=== PATIENT | male | born 1930 | race Caucasian/White ===

== ENCOUNTER 2017-06-15 08:00 | Outpatient (CLI) | payer MEDICARE ==
[2017-06-16 12:30] LABS: ALBUMIN 4.1 g/dL (3.2-5.5); ALBUMIN/GLOBULIN RATIO 1.6 (1.0-2.2); ALKALINE PHOSPHATASE 64 IU/L (42-121); ALT ALANINE AMINOTRANSFERASE 19 IU/L (10-60); AST ASPARTATE AMINOTRANSFERASE 22 IU/L (10-42); BILIRUBIN,TOTAL 0.8 mg/dL (0.2-1.0); BUN - BLOOD UREA NITROGEN 17 mg/dL (6-20); CALCIUM 8.9 mg/dL (8.5-10.3); CARBON DIOXIDE - CO2 29 mmol/L (21-32); CHLORIDE 104 mmol/L (101-111); CHOLESTEROL 112 mg/dL; CREATININE 1.2 mg/dL (0.6-1.2); GFR - MDRD 57 (>89); GLUCOSE 112 mg/dL (70-100); HDL CHOLESTEROL 33 mg/dL; LDL CHOLESTEROL,CALCULATED 49 mg/dL; SODIUM 138 mmol/L (135-145); TOTAL PROTEIN 6.7 g/dL (6.7-8.2); VLDL CHOLESTEROL 30 mg/dL
[2017-06-16 12:31] LABS: CHOL/HDL RATIO 3.4 (<5.0); LDL/HDL RATIO 1.5 (<3.6)
== END 2017-06-15 08:01 ==
LOC: LAB.F 08:00
PROVIDERS: ATTEND Internal Medicine
DX: I10 Essential (primary) hypertension (principal); E78.5 Hyperlipidemia, unspecified; I48.2 Chronic atrial fibrillation
CPT/HCPCS: 36415; 80053; 80061; 83721; 84443

== ENCOUNTER 2017-11-28 15:37 | Emergency (ER) | payer MEDICARE, OTHER ==
[2017-11-28 16:18] LABS: BASOPHILS % (AUTO) 0.6 %; EOSINOPHILS # (AUTO) 0.1 10^3/uL (0.0-0.7); EOSINOPHILS % (AUTO) 1.9 %; HGB - HEMOGLOBIN 14.1 g/dL (14.0-18.0); LYMPHOCYTES # (AUTO) 1.6 10^3/uL (1.5-3.5); LYMPHOCYTES % (AUTO) 23.6 %; MEAN CORPUSCULAR HEMOGLOBIN 29.9 pg (27.0-31.0); MEAN CORPUSCULAR HGB CONC 33.4 g/dL (32.0-36.0); MEAN CORPUSCULAR VOLUME 89.4 fL (80.0-94.0); MEAN PLATELET VOLUME 8.4 fL (7.4-11.4); MONOCYTES # (AUTO) 0.4 10^3/uL (0.0-1.0); MONOCYTES % (AUTO) 6.3 %; NEUTROPHILS # (AUTO) 4.7 10^3/uL (1.5-6.6); NEUTROPHILS % (AUTO) 67.6 %; PLT - PLATELET COUNT 197 10^3/uL (130-450); RED BLOOD COUNT 4.71 10^6/uL (4.70-6.10); RED CELL DISTRIBUTION WIDTH 14.6 % (12.0-15.0)
--- NOTE | 2017-11-28 16:18 | ED Physician Documentation ---
PD HPI DYSPNEA - Stated complaint Stated Complaint: LOW PULSE - Chief complaint Chief Complaint: Cardiac - History obtained from History obtained from: Patient, Family - History of Present Illness Timing - onset: How many days ago (family has noted the patient having some general fatigue and mild dyspnea on exertion for several days. He had ankle edema yesterday. Took vitals at home and noted HR slow at about 40 and BP elevated at 200 systolic. Denies chest pain.) Timing - onset during: Light activity Timing - details: Gradual onset, Waxing and waning Inciting event(s): Other (He does have history of COPD and has noticed dyspnea for the last month or 2 which has increased in the last week. He notices it with mild exertion. He has not noticed orthopnea. Denies any chest pain with that.). No: Out of meds, URI Improved by: Rest Worsened by: Exertion. No: Laying flat, Coughing Associated symptoms: Palpitations (history of irregular heart beat/atrial fib, and had been noted to be slower lately.), Bilateral edema (the past couple of days). No: Cough, Wheezing, Chest pain / discomfort, Anxiety Recently seen: Emergency Dept (He was seen in the emergency room 2 months ago at [facility] with slow heart rate and some fatigue. His states they were told to stop his blood pressure medicine lisinopril. They did notice his heart rate seemed to be better over the next several weeks. They do had not taken it consistently but she states they check his blood pressure and heart rate once or twice a week. His blood pressure had been 150s systolic and heart rate about 60. They noticed the last few days he has had general fatigue and 2 days of ankle swelling. They noticed his blood pressure to be elevated and his heart rate bit slower again. The patient states he previously had been on diltiazem but has not taken that for about 6 months but does still have some medicines at home. He is sure that he would not confuse the medications regarding what he is taking currently. His medicine list includes losartan as a blood pressure medicine. That is the one he had stopped taking the last 2 months.) Review of Systems Constitutional: denies: Fever, Chills, Myalgias Nose: denies: Rhinorrhea / runny nose, Congestion Throat: denies: Sore throat Cardiac: reports: Palpitations, Pedal edema (couplr of days). denies: Chest pain / pressure, Calf pain Respiratory: reports: Dyspnea. denies: Cough GI: denies: Abdominal Pain, Nausea, Vomiting, Diarrhea : reports: Frequency. denies: Dysuria Skin: denies: Rash, Lesions PD PAST MEDICAL HISTORY - Past Medical History Past Medical History: Yes Cardiovascular: Hypertension Respiratory: COPD Neuro: TIA - Past Surgical History Past Surgical History: Yes General: Bowel surgery, Other Cardiovascular: Lobectomy HEENT: Tonsil/Adenoidectomy - Present Medications Home Medications: Ambulatory Orders Medication Instructions Recorded Confirmed Albuterol 2.5 mg INH Q4H PRN 11/28/17 11/28/17 Apixaban [Eliquis] 5 mg PO 11/28/17 Atorvastatin Calcium 40 mg PO 11/28/17 Brimonidine 0.2% Ophth Drops 11/28/17 [Alphagan P 0.2% Ophth Drops] Latanoprost 2.5 ml OP 11/28/17 Losartan [Cozaar] 25 mg PO DAILY 11/28/17 11/28/17 Multivitamin [Multiple Vitamins] 11/28/17 11/28/17 Tiotropium [place] [Spiriva] 11/28/17 - Allergies Allergies/Adverse Reactions: Allergies Allergy/AdvReac Type Severity Reaction Status Date / Time No Known Drug Allergies Allergy Verified 11/28/17 15:49 - Social History Does the pt smoke?: No Smoking Status: Never smoker PD ED PE NORMAL - Vitals Vital signs reviewed: Yes - General General: Alert and oriented X 3, No acute distress, Well developed/nourished, Other (lying back on cart comfortably. ) - HEENT HEENT: Pharynx benign - Neck Neck: Supple, no meningeal sign, No adenopathy - Cardiac Cardiac: No rub, Other (irregular and bardycardic at 40-60 range). No: RRR, No murmur (mild murmur c/w .) - Respiratory Respiratory: No respiratory distress. No: Clear bilaterally (fine crackles at base only. ) - Abdomen Abdomen: Soft, Non tender - Male Male : Deferred - Rectal Rectal: Deferred - Back Back: No CVA TTP - Derm Derm: Normal color, Warm and dry - Extremities Extremities: No deformity, No tenderness to palpate, Normal ROM s pain, No calf tenderness / cord, Other (1+ edema in both lower legs and ankles. ) - Neuro Neuro: Alert and oriented X 3, No motor deficit, Normal speech Results - Vitals Vitals: Vital Signs - 24 hr 11/28/17 11/28/17 11/28/17 15:40 16:56 18:09 Temperature 36.5 C Heart Rate 40 L 39 L 54 L Respiratory 15 15 19 Rate Blood Pressure 200/65 H 173/54 H 184/61 H O2 Saturation 95 98 98 Oxygen O2 Source Room air - Labs Labs: Laboratory Tests 11/28/17 11/28/17 11/28/17 15:50 15:50 15:50 WBC 7.0 RBC 4.71 Hgb 14.1 Hct 42.1 MCV 89.4 MCH 29.9 MCHC 33.4 RDW 14.6 Plt Count 197 MPV 8.4 Neut # (Auto) 4.7 Lymph # (Auto) 1.6 [place] # (Auto) 0.4 Eos # (Auto) 0.1 Baso # (Auto) 0.0 Absolute Nucleated RBC 0.00 Nucleated RBC % 0.1 PT 20.1 H INR 1.8 H APTT 34.9 H Sodium 138 Potassium 3.4 L Chloride 101 Carbon Dioxide 29 Anion Gap 8.0 BUN 16 Creatinine 1.2 Estimated GFR (MDRD) 57 L Glucose 151 H Calcium 8.7 Magnesium 1.9 Total Bilirubin 1.6 H AST 20 ALT 15 Alkaline Phosphatase 85 Troponin I B-Natriuretic Peptide Total Protein 7.3 Albumin 4.2 Globulin 3.1 Albumin/Globulin Ratio 1.4 Lipase 34 Urine Color Urine Clarity Urine pH Ur Specific [place] Urine Protein Urine Glucose (UA) Urine Ketones Urine Occult Blood Urine Nitrite Urine Bilirubin Urine Urobilinogen Ur Leukocyte Esterase Ur Microscopic Review Urine Culture Comments 11/28/17 11/28/17 11/28/17 15:50 15:50 16:30 WBC RBC Hgb Hct MCV MCH MCHC RDW Plt Count MPV Neut # (Auto) Lymph # (Auto) [place] # (Auto) Eos # (Auto) Baso # (Auto) Absolute Nucleated RBC Nucleated RBC % PT INR APTT Sodium Potassium Chloride Carbon Dioxide Anion Gap BUN Creatinine Estimated GFR (MDRD) Glucose Calcium Magnesium Total Bilirubin AST ALT Alkaline Phosphatase Troponin I 0.06 B-Natriuretic Peptide 830 H Total Protein Albumin Globulin Albumin/Globulin Ratio Lipase Urine Color YELLOW Urine Clarity CLEAR Urine pH 7.0 Ur Specific [place] 1.010 Urine Protein NEGATIVE Urine Glucose (UA) NEGATIVE Urine Ketones NEGATIVE Urine Occult Blood NEGATIVE Urine Nitrite NEGATIVE Urine Bilirubin NEGATIVE Urine Urobilinogen 0.2 (NORMAL) Ur Leukocyte Esterase NEGATIVE Ur Microscopic Review NOT INDICATED Urine Culture Comments NOT INDICATED PD MEDICAL DECISION MAKING - ED course Complexity details: reviewed results, considered differential (He is not on any rate limiting medications nor antiarrhythmics. He does have a slow heart rate in his newer for him with the parent family stating his heart rate has been in the 60 range for the last couple of months and is just slower noted the last few days. He is apparently in congestive failure related to this. I talked with cardiology at [facility], Dr. Mcdonald who states the patient needs to be assessed for potential pacemaker placement and refers to their hospitalist. I talked to Dr. Barth hospitalist at [facility] who accepts transfer.), d/w patient, d/w family - Sepsis Event Vital Signs: Vital Signs - 24 hr 11/28/17 11/28/17 11/28/17 15:40 16:56 18:09 Temperature 36.5 C Heart Rate 40 L 39 L 54 L Respiratory 15 15 19 Rate Blood Pressure 200/65 H 173/54 H 184/61 H O2 Saturation 95 98 98 Oxygen O2 Source Room air Departure - Departure Disposition: 02 Transfer Acute Care Hosp Clinical Impression: Bradycardia, Atrial fibrillation, chronic, Sick sinus syndrome Acute exacerbation of CHF (congestive heart failure) Qualifiers: Heart failure type: unspecified Qualified Code(s): I50.9 - Heart failure, unspecified Condition: Stable Record reviewed to determine appropriate education?: Yes
[2017-11-28 16:22] LABS: INR 1.8 (0.8-1.2); PT - PROTHROMBIN TIME 20.1 secs (9.9-12.6)
[2017-11-28 16:25] LABS: ALBUMIN 4.2 g/dL (3.2-5.5); ALBUMIN/GLOBULIN RATIO 1.4 (1.0-2.2); BILIRUBIN,TOTAL 1.6 mg/dL (0.2-1.0); CALCIUM 8.7 mg/dL (8.5-10.3); CREATININE 1.2 mg/dL (0.6-1.2); MAGNESIUM 1.9 mg/dL (1.7-2.8); TOTAL PROTEIN 7.3 g/dL (6.7-8.2)
[2017-11-28 16:41] LABS: BILIRUBIN,URINE NEGATIVE (NEGATIVE); GLUCOSE, URINE (UA) NEGATIVE (NEGATIVE); KETONES,URINE (UA) NEGATIVE (NEGATIVE); LEUKOCYTE ESTERASE, URINE NEGATIVE (NEGATIVE); NITRITE,URINE NEGATIVE (NEGATIVE); OCCULT BLOOD,URINE NEGATIVE (NEGATIVE); PROTEIN,URINE NEGATIVE (NEGATIVE); UROBILINOGEN,URINE 0.2 (NORMAL) E.U./dL (NORMAL)
[2017-11-28 16:43] LABS: CLARITY,URINE CLEAR (CLEAR)
--- NOTE | 2017-11-28 16:55 | XRAY Report ---
Reason: dyspnea and some leg swelling Procedure Date: 11/28/2017 Accession Number: [id number] / [id number] Procedure: XR - Chest 2 View X-Ray CPT Code: 16805 FULL RESULT: EXAM: CHEST RADIOGRAPHY EXAM DATE: 11/28/2017 04:28 PM. CLINICAL HISTORY: Dyspnea and some leg swelling. COMPARISON: None. TECHNIQUE: 2 views. FINDINGS: Lungs/Pleura: The lungs are hyperinflated. There is blunting of the right costophrenic sulcus. Adjacent streaky right lung base opacities. No focal consolidation. No edema. Lungs are hyperinflated. No pneumothorax. Mediastinum: The heart is mildly enlarged. Other: None. IMPRESSION: Right pleural thickening versus small effusion with adjacent right lung base scarring. No focal consolidation or edema. RADIA
[2017-11-28] MEDS ORDERED: FUROSEMIDE 20 MG/2 ML VIAL IVP STA (17:19)
[2017-11-28] MEDS ORDERED: POTASSIUM BICARB 25 MEQ TABLET PO STA ×2 (17:19→19:18)
[2017-11-28] MEDS ORDERED: LOSARTAN 50 MG TABLET PO STA (18:13)
[2017-11-28 20:18] VITALS: BP 172/51
== END 2017-11-28 20:42 | disposition short-term general hospital (02) ==
LOC: ED 15:37
DX: R00.1 Bradycardia, unspecified (principal); I48.2 Chronic atrial fibrillation; I11.0 Hypertensive heart disease with heart failure; I50.9 Heart failure, unspecified; Z79.01 Long term (current) use of anticoagulants; Z86.73 Personal history of transient ischemic attack (TIA), and cerebral infarction without residual deficits; J44.9 Chronic obstructive pulmonary disease, unspecified
CPT/HCPCS: 36415; 71046; 80053; 81003; 83690; 83735; 83880; 84484; 85025; 85610; 85730; 93005; 96374; 99284; A9270; 81001; 87086; 99285

== ENCOUNTER 2017-12-02 10:17 | Observation (INO) | payer MEDICARE, OTHER ==
--- NOTE | 2017-12-02 11:05 | ED Physician Documentation ---
History of Present Illness - Stated complaint Stated Complaint: CONFUSION/DISORIENTED - Chief complaint Chief Complaint: Neuro - Additonal information Additional information: hx from pt 87 male 2 days sp PPM placement at [facility] to ED today for 10-15 min of expressive aphasia no facial droop or unilateral numbness or weakness Review of Systems Constitutional: denies: Fever Throat: denies: Sore throat Cardiac: denies: Chest pain / pressure Respiratory: denies: Dyspnea GI: denies: Abdominal Pain Neurologic: reports: Difficulty speaking. denies: Focal weakness, Numbness, Headache Endocrine: reports: Easy bruising / bleeding (off eliquis X 2 days for PPM restarted today) PD PAST MEDICAL HISTORY - Past Medical History Cardiovascular: Hypertension Respiratory: COPD Neuro: TIA - Past Surgical History Past Surgical History: Yes General: Bowel surgery, Other Cardiovascular: Lobectomy HEENT: Tonsil/Adenoidectomy - Present Medications Home Medications: Ambulatory Orders Medication Instructions Recorded Confirmed Albuterol 2.5 mg INH Q4H PRN 11/28/17 12/02/17 Apixaban [Eliquis] 5 mg PO BID 11/28/17 12/02/17 Atorvastatin Calcium 40 mg PO QPM 11/28/17 12/02/17 Brimonidine 0.2% Ophth Drops 1 drops EACHEYE BID 11/28/17 12/02/17 [Alphagan P 0.2% Ophth Drops] Latanoprost 1 drops EACHEYE QPM 11/28/17 12/02/17 Losartan [Cozaar] 25 mg PO DAILY 11/28/17 12/02/17 Multivitamin [Multiple Vitamins] 1 tab PO DAILY 11/28/17 12/02/17 Tiotropium [place] [Spiriva] 2 cap INH DAILY 11/28/17 12/02/17 Metoprolol Succinate 12.5 mg PO DAILY 12/02/17 12/02/17 - Allergies Allergies/Adverse Reactions: Allergies Allergy/AdvReac Type Severity Reaction Status Date / Time No Known Drug Allergies Allergy Verified 12/02/17 10:24 - Social History Does the pt smoke?: No Smoking Status: Never smoker PD ED PE NORMAL - Vitals Vital signs reviewed: Yes - Neck Neck: Supple, no meningeal sign - Cardiac Cardiac: RRR, Other (PPM site seems to be healing well) - Respiratory Respiratory: No respiratory distress, Clear bilaterally - Derm Derm: Normal color - Neuro Neuro: Alert and oriented X 3, steel finisher 2-12 intact, No motor deficit, No sensory deficit, Normal speech, Other (right now NIHSS zero) Results - Vitals Vitals: Vital Signs - 24 hr 12/02/17 10:20 Temperature 36.3 C L Heart Rate 70 Respiratory 16 Rate Blood Pressure 152/70 H O2 Saturation 98 Oxygen O2 Source Room air - EKG (time done) 1037 Rate: Rate (enter#) (60) Rhythm: Other (appears to be paced at 60 - wide complex reg and cards states that is his PPM rate) - Labs Labs: Laboratory Tests 12/02/17 12/02/17 12/02/17 11:24 11:24 11:24 WBC 8.6 RBC 4.94 Hgb 14.9 Hct 43.6 MCV 88.4 MCH 30.1 MCHC 34.1 RDW 14.4 Plt Count 181 MPV 8.2 Neut # (Auto) 6.7 H Lymph # (Auto) 1.1 L [place] # (Auto) 0.6 Eos # (Auto) 0.1 Baso # (Auto) 0.0 Absolute Nucleated RBC 0.00 Nucleated RBC % 0.0 PT 17.5 H INR 1.6 H Sodium 134 L Potassium 4.1 Chloride 99 L Carbon Dioxide 27 Anion Gap 8.0 BUN 15 Creatinine 1.4 H Estimated GFR (MDRD) 48 L Glucose 135 H Calcium 9.1 Urine Color Urine Clarity Urine pH Ur Specific [place] Urine Protein Urine Glucose (UA) Urine Ketones Urine Occult Blood Urine Nitrite Urine Bilirubin Urine Urobilinogen Ur Leukocyte Esterase Ur Microscopic Review Urine Culture Comments 12/02/17 12:00 WBC RBC Hgb Hct MCV MCH MCHC RDW Plt Count MPV Neut # (Auto) Lymph # (Auto) [place] # (Auto) Eos # (Auto) Baso # (Auto) Absolute Nucleated RBC Nucleated RBC % PT INR Sodium Potassium Chloride Carbon Dioxide Anion Gap BUN Creatinine Estimated GFR (MDRD) Glucose Calcium Urine Color YELLOW Urine Clarity CLEAR Urine pH 6.0 Ur Specific [place] 1.020 Urine Protein NEGATIVE Urine Glucose (UA) NEGATIVE Urine Ketones NEGATIVE Urine Occult Blood NEGATIVE Urine Nitrite NEGATIVE Urine Bilirubin NEGATIVE Urine Urobilinogen 0.2 (NORMAL) Ur Leukocyte Esterase NEGATIVE Ur Microscopic Review NOT INDICATED Urine Culture Comments NOT INDICATED - Rads (name of study) [facility] Radiology: See rad report (no acute) PD MEDICAL DECISION MAKING - ED course ED course: spoke to cardio who does not feel pt sx are due to PPM mechanically at least (but had to hold eliquis) abcd2 score 4 merits obs for serial neruo exams, echo, vessel imaging called hospitalist at 1250 - Sepsis Event Vital Signs: Vital Signs - 24 hr 12/02/17 10:20 Temperature 36.3 C L Heart Rate 70 Respiratory 16 Rate Blood Pressure 152/70 H O2 Saturation 98 Oxygen O2 Source Room air Departure - Departure Disposition: ED Place in Observation Clinical Impression: TIA (transient ischemic attack)
[2017-12-02 11:32] LABS: BASOPHILS % (AUTO) 0.3 %; EOSINOPHILS # (AUTO) 0.1 10^3/uL (0.0-0.7); EOSINOPHILS % (AUTO) 1.7 %; HGB - HEMOGLOBIN 14.9 g/dL (14.0-18.0); LYMPHOCYTES # (AUTO) 1.1 10^3/uL (1.5-3.5); LYMPHOCYTES % (AUTO) 12.4 %; MEAN CORPUSCULAR HEMOGLOBIN 30.1 pg (27.0-31.0); MEAN CORPUSCULAR HGB CONC 34.1 g/dL (32.0-36.0); MEAN CORPUSCULAR VOLUME 88.4 fL (80.0-94.0); MEAN PLATELET VOLUME 8.2 fL (7.4-11.4); MONOCYTES # (AUTO) 0.6 10^3/uL (0.0-1.0); NEUTROPHILS # (AUTO) 6.7 10^3/uL (1.5-6.6); NEUTROPHILS % (AUTO) 78.6 %; PLT - PLATELET COUNT 181 10^3/uL (130-450); RED BLOOD COUNT 4.94 10^6/uL (4.70-6.10); RED CELL DISTRIBUTION WIDTH 14.4 % (12.0-15.0); WHITE BLOOD COUNT 8.6 x10^3/uL (4.8-10.8)
--- NOTE | 2017-12-02 11:33 | CT Report ---
Reason: tia / aphasia / resoleved Procedure Date: 12/02/2017 Accession Number: [id number] / [id number] Procedure: CT - Head W/O Stroke Protocol CPT Code: FULL RESULT: EXAM: CT HEAD EXAM DATE: 12/02/2017 11:23 AM. CLINICAL HISTORY: TIA / aphasia / resolved. COMPARISON: None. TECHNIQUE: Multiaxial CT images were obtained from the foramen magnum to the vertex. Reformats: Coronal. IV contrast: None. In accordance with CT protocol optimization, one or more of the following dose reduction techniques were utilized for this exam: automated exposure control, adjustment of mA and/or KV based on patient size, or use of iterative reconstructive technique. FINDINGS: Parenchyma: No intraparenchymal hemorrhage. No evidence of mass, midline shift, or CT findings of acute infarction. [place]-white differentiation is distinct. Diffuse chronic microangiopathic white matter changes are evident. Extraaxial Spaces: Normal for age. No subdural or epidural collections identified. Ventricles: The ventricles and cortical sulci are enlarged, consistent with age-related tissue loss. Sinuses and orbits: Imaged paranasal sinuses, orbits, and mastoids show no significant abnormality. Bones: No evidence of fracture or calvarial defect. Other: None. IMPRESSION: Generalized age-related cortical atrophic changes without evidence of acute intracranial abnormality. No intracranial hemorrhage, mass-effect, or CT evidence of acute infarct. RADIA The call report notification system was initiated by Dr. Jim Alamo at 11:29 hrs on 12/02/17. The above findings were discussed with Dr. Ramirez by Dr. Jim Alamo at 11:32 hrs on 12/02/17.
[2017-12-02 11:39] LABS: INR 1.6 (0.8-1.2); PT - PROTHROMBIN TIME 17.5 secs (9.9-12.6)
[2017-12-02 11:42] LABS: CALCIUM 9.1 mg/dL (8.5-10.3); CREATININE 1.4 mg/dL (0.6-1.2)
[2017-12-02 12:16] LABS: BILIRUBIN,URINE NEGATIVE (NEGATIVE); CLARITY,URINE CLEAR (CLEAR); GLUCOSE, URINE (UA) NEGATIVE (NEGATIVE); KETONES,URINE (UA) NEGATIVE (NEGATIVE); LEUKOCYTE ESTERASE, URINE NEGATIVE (NEGATIVE); NITRITE,URINE NEGATIVE (NEGATIVE); OCCULT BLOOD,URINE NEGATIVE (NEGATIVE); PROTEIN,URINE NEGATIVE (NEGATIVE); UROBILINOGEN,URINE 0.2 (NORMAL) E.U./dL (NORMAL)
[2017-12-02] MEDS ORDERED: ALBUTEROL NEB 2.5 MG/3 ML INH PRN (13:03)
[2017-12-02] MEDS ORDERED: PROCHLORPERAZINE 10 MG/2 ML VIAL IVP PRN (13:03)
[2017-12-02] MEDS ORDERED: ACETAMINOPHEN 325 MG TABLET PO PRN (13:03)
[2017-12-02] MEDS ORDERED: ONDANSETRON 4 MG/2 ML VIAL IVP PRN (13:03)
[2017-12-02] MEDS ORDERED: SODIUM CHLORIDE FLUSH 0.9% 10 ML SYRINGE IVP PRN (13:03)
[2017-12-02] MEDS ORDERED: IOPAMIDOL-300 100 ML VIAL ONE (13:12)
[2017-12-02] MEDS ORDERED: IOPAMIDOL-300 100 ML VIAL IVP ONE (13:23)
--- NOTE | 2017-12-02 13:58 | HISTORY & PHYSICAL EXAMINATION ---
Chief Complaint - Chief Complaint Chief Complaint: confusion, memory loss History of Present Illness - Admitted From Admitted From:: ED - History Obtained From Records Reviewed: yes History obtained from: chart review, patient, family Exam Limitations: none - History of Present Illness HPI Comment/Other: Stefano Cunha is an 87-year old male with a past medical history of hypertension, atrial fibrillation, status post pacemaker, COPD, TIA, and nocturia. The patient presented to the ED with his who drove him here for TIA symptoms. The patient states that he awoke this morning feeling his normal self, and suddenly could not speak with acute memory loss. He did not have any associated symptoms such as shortness of breath, nausea, vomiting, dizziness, or chest pain. His was present and did not notice any ataxia or facial droop. The patient denies a new cough or problems with swallowing. Imaging of the he ad/neck did not show any acute abnormalities or evidence of bleeding. Upon my exam the patient has no focal-neuro deficits and has had a resolution of his symptoms. The patient will be admitted to observation for neuro checks, and an echocardiogram. History - Past Medical History Cardiovascular: reports: Hypertension Respiratory: reports: COPD Neuro: reports: TIA - Past Surgical History General: reports: Bowel surgery, Other Cardiovascular: reports: Lobectomy HEENT: reports: Tonsil/Adenoidectomy - Family & Social History Family History: Mother: , Cancer, Father: , CAD, [place], Sister: Alive and Well Family History Comment/Other: The patient's mother from cancer, his father from CAD, [place]. He has 2 living sisters who are well, without any known chronic illnesses. Living arrangement: At home Living Situation: With spouse/s.o. Social History Notes: The patient is retired from a [email or web address] in which he worked there for 40 years. 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 He and his had a son and a daughter. He and his just recently moved in with Mirna, their daughter and their son-in-law and are independent. The patient denies current tobacco, alcohol, or illicit drug use. He admits to a history of tobacco dependence from age [age]. He wishes to be a FULL code. - Substance History Use: Uses substance without health or social issues: NONE Abuse: Recurrent use of substance despite neg consequences: NONE Dependence: Experiences withdrawal or developed tolerances: NONE - POLST Patient has POLST: No POLST Status: Full Code Meds/Allgy - Home Medications Home Medications: Ambulatory Orders Medication Instructions Recorded Confirmed Albuterol 2.5 mg INH Q4H PRN 11/28/17 12/02/17 Apixaban [Eliquis] 5 mg PO BID 11/28/17 12/02/17 Atorvastatin Calcium 40 mg PO QPM 11/28/17 12/02/17 Brimonidine 0.2% Ophth Drops 1 drops EACHEYE BID 11/28/17 12/02/17 [Alphagan P 0.2% Ophth Drops] Latanoprost 1 drops EACHEYE QPM 11/28/17 12/02/17 Losartan [Cozaar] 25 mg PO DAILY 11/28/17 12/02/17 Multivitamin [Multiple Vitamins] 1 tab PO DAILY 11/28/17 12/02/17 Tiotropium [place] [Spiriva] 2 cap INH DAILY 11/28/17 12/02/17 Metoprolol Succinate 12.5 mg PO DAILY 12/02/17 12/02/17 Aspirin [Aspirin EC] 81 mg PO DAILY #30 tablet. 12/03/17 - Allergies Allergies/Adverse Reactions: Allergies Allergy/AdvReac Type Severity Reaction Status Date / Time No Known Drug Allergies Allergy Verified 12/02/17 10:24 Review of Systems - Constitutional Constitutional: reports: Fatigue, Weakness - Eyes Eyes: reports: Corrective lenses - Ears, Nose & Throat Ears, Nose & Throat: reports: Hearing loss, Hearing aids, Postnasal drainage - Cardiovascular Cariovascular: reports: Lightheadedness - Genitourinary Genitourinary: reports: Nocturia - Neurological Neurological: reports: General weakness, Dizziness, Memory problems, Pre- existing deficit - All Other Systems All Other Systems: reports: Reviewed and negative Prior Level of Functionality: Independent without DME devices. Was previously mowing the lawn at home. Exam - Vital Signs Reviewed Vital Signs: Yes Vital Signs: Vital Signs x48h Temp Pulse Resp BP Pulse Ox 12/02/17 10:20 36.3 C L 70 16 152/70 H 98 - Physical Exam General Appearance: positive: No acute distress, Alert Eyes Bilateral: positive: Normal inspection ENT: positive: ENT inspection nml, No signs of dehydration Neck: positive: Nml inspection, Thyroid nml, No JVD Respiratory: positive: Chest non-tender, No respiratory distress, Breath sounds nml Cardiovascular: positive: Regular rate & rhythm Conclusion/Plan - Problem List (1) TIA (transient ischemic attack) Conclusion/Plan: The patient states that he awoke this morning feeling his normal self, and suddenly could not speak with acute memory loss. He did not have any associated symptoms such as shortness of breath, nausea, vomiting, dizziness, or chest pain. His was present and did not notice any ataxia or facial droop. The patient denies a new cough or problems with swallowing. Imaging of the head/neck did not show any acute abnormalities or evidence of bleeding. Plan: Continue to monitor overnight, telemetry, obtain an echocardiogram. (2) Memory loss Conclusion/Plan: The patient had memory loss in addition to his temporary expressive aphasia. The patient and his state that he could not recall common events or situations that should have been easily recalled on a normal day. This symptom is no longer evident. Plan: Continue TIA work up. (3) Expressive aphasia Conclusion/Plan: The patient was noted to have sluggish speech, with word finding difficulties. This symptom went along with some short term memory loss. This has resolved upon my exam and the patient is able to articulate accurately the course of ludwin nts that led to this hospital stay. Plan: Continue TIA work up. (4) Chronic anticoagulation Conclusion/Plan: The patient is prescribed Eliquis BID, which was resumed just this morning after being on hold for the previous 72 hours so that the patient could undergo a pacemaker implant. The patient states that between he and his , they are extremely compliant with taking their medications on time every day. Plan: Continue Eliquis as at home and monitor for recurrent symptoms. (5) Atrial fibrillation, chronic Conclusion/Plan: The patient has had this for several years. His current EKG and telemetry show a paced rhythm in the 60-70's. He was previously anticoagulated with warfarin, but has recently been on Eliquis with good success. He had an interruption in his Eliquis for about 72 hours to get his pacemaker, but this has been resumed. Plan: Continue on telemetry, and continue Eliquis. - Lab Results Lab results reviewed: Yes Fish Bones: 12/03/17 05:56 12/03/17 05:56 - Diagnostic Imaging Results Diagnostic Imaging Results: positive: Final report reviewed - EKG Results EKG Interpreted Independently: Yes EKG Findings: Paced 60-70's. Core Measures - Anticipated LOS I expect patient to be DC'd or transferred within 96 hours.: Yes - DVT/VTE - Prophylaxis VTE/DVT Device ordered at admit?: Yes VTE/DVT Prophylaxis med ordered at admit?: Yes - Stroke - Rehab Assessment Rehab services assessment to be ordered?: No Not Ordered - Medical Reason: Contraindicated - AMI - Statin at Admit Aspirin Prescribed on Admit: Yes
--- NOTE | 2017-12-02 14:09 | CT Report ---
Reason: Expressive aphasia, TIA Procedure Date: 12/02/2017 Accession Number: [id number] / [id number] Procedure: CT - Head Angio CPT Code: FULL RESULT: EXAM: CT ANGIOGRAM HEAD. CT SCAN OF THE HEAD WITH CONTRAST. EXAM DATE: 12/02/2017 01:34 PM CLINICAL HISTORY: Expressive aphasia, TIA. COMPARISON: Noncontrast CT head 12/02/2017 TECHNIQUE: - CT Scan Head: Using a multidetector scanner, axial images were acquired from the foramen magnum to the skull vertex following contrast administration. - CT Angiogram: Using a multidetector scanner, high-resolution axial images were acquired from the skull base through vertex following rapid infusion of intravenous contrast. Reformats: Multiplanar MIP reformats were reconstructed. Nascet criteria used for stenosis measurement. IV Contrast: 100 cc Isovue-300. In accordance with CT protocol optimization, one or more of the following dose reduction techniques were utilized for this exam: automated exposure control, adjustment of mA and/or KV based on patient size, or use of iterative reconstructive technique. FINDINGS: NON-CONTRAST HEAD: Performed and dictated separately POST-CONTRAST HEAD: No abnormal enhancement. CT ANGIOGRAM HEAD: RIGHT: Internal Carotid artery: Moderate atherosclerosis right carotid siphon, maximal stenosis 30-40%. Anterior Cerebral Artery: Patent without significant stenosis, aneurysm, or vascular malformation. Middle Cerebral Artery: Patent without significant stenosis, aneurysm, or vascular malformation. Posterior Cerebral Artery: Patent without significant stenosis, aneurysm, or vascular malformation. Posterior Communicating Artery: Not clearly visualized, likely hypoplastic or aplastic. Vertebral Artery: Patent without significant stenosis. No evidence of dissection. LEFT: Internal Carotid artery: Moderate atherosclerosis left carotid siphon, maximal stenosis 20-30%. Anterior Cerebral Artery: Patent without significant stenosis, aneurysm, or vascular malformation. Middle Cerebral Artery: Patent without significant stenosis, aneurysm, or vascular malformation. Posterior Cerebral Artery: Patent without significant stenosis, aneurysm, or vascular malformation. Posterior Communicating Artery: Not clearly visualized, likely hypoplastic or aplastic. Vertebral Artery: Patent without significant stenosis. No evidence of dissection. CENTRAL: Anterior Communicating Artery: Patent. No aneurysm. Basilar Artery: Patent without significant stenosis. No aneurysm. DURAL VENOUS SINUSES AND MAJOR CENTRAL VEINS: Patent. IMPRESSION: 1. Concurrently obtained noncontrast CT head has been dictated separate. 2. No abnormal enhancement on the postcontrast CT head. 3. No CTA evidence of high-grade stenosis, large vessel occlusion, acute dissection, aneurysm, or vascular malformation within intracranial arteries. 4. Moderate atherosclerosis right carotid siphon, maximal stenosis 30-40%. 5. Moderate atherosclerosis left carotid siphon, maximal stenosis 20-30%. RADIA
--- NOTE | 2017-12-02 14:18 | CT Report ---
Reason: Expressive aphasia, TIA Procedure Date: 12/02/2017 Accession Number: [id number] / [id number] Procedure: CT - Neck Angio CPT Code: FULL RESULT: EXAM: CT ANGIOGRAM NECK EXAM DATE: 12/02/2017 01:34 PM. CLINICAL HISTORY: 87-year-old male. Expressive aphasia, TIA. COMPARISON: Noncontrast CT head and CTA head obtained concurrently TECHNIQUE: Routine axial helical imaging was performed from the skull base through the aortic arch. Reconstructions: Routine multiplanar 3D MIP reconstructions. IV Contrast: 100 cc Isovue 300. Evaluation of arterial stenosis is based on a NASCET method of measurement. In accordance with CT protocol optimization, one or more of the following dose reduction techniques were utilized for this exam: automated exposure control, adjustment of mA and/or KV based on patient size, or use of iterative reconstructive technique. FINDINGS: Mild atherosclerosis aortic arch, no hemodynamically significant stenosis. Mild atherosclerosis proximal right subclavian artery, no hemodynamically significant stenosis. Right Carotid: Moderate atherosclerosis right carotid bifurcation and right carotid bulb, maximal stenosis of approximately 20%, mild by NASCET criteria . Approximately 10-20% narrowing origin of the right external carotid artery. The common carotid, internal carotid, and external carotid arteries are patent. No evidence of dissection Left Carotid: Moderate to severe atherosclerosis left carotid bifurcation and left carotid bulb, maximal stenosis of approximately 50%, moderate by NASCET criteria. Approximately 30-40% narrowing proximal left external carotid artery. The common carotid, internal carotid, and external carotid arteries are patent. No evidence of dissection. Vertebrals: The left vertebral artery is minimally dominant. Approximately 30-40% narrowing origin of the left vertebral artery. The vertebrobasilar system is otherwise unremarkable Intracranial Circulation: Concurrently obtained CTA head has been dictated separately. Other: Moderate centrilobular and paraseptal emphysema. Moderate multilevel degenerative spondylosis of the visualized spine, no acute fracture or malalignment. There is a 1 cm sclerotic lesion within T1 vertebral body which is nonspecific, may represent a bone island. The visualized soft tissues of the neck demonstrate no acute abnormality. IMPRESSION: 1. No CTA evidence of high-grade stenosis, large vessel occlusion, acute dissection, aneurysm, or vascular malformation within extracranial arteries. Concurrently obtained CTA head has been dictated simply. 2. Moderate atherosclerosis right carotid bifurcation and right carotid bulb, maximal stenosis of approximately 20%, mild by NASCET criteria . 3. Approximately 10-20% narrowing origin of the right external carotid artery. 4. Moderate to severe atherosclerosis left carotid bifurcation and left carotid bulb, maximal stenosis of approximately 50%, moderate by NASCET criteria. 5. Approximately 30-40% narrowing proximal left external carotid artery. 6. Approximately 30-40% narrowing origin of the left vertebral artery. RADIA
[2017-12-02] MEDS: SODIUM CHLORIDE FLUSH 0.9% 10 ML SYRINGE IVP SCH (15:39)
[2017-12-02] MEDS: SODIUM CHLORIDE 0.9% 1,000 ML IV SCH (15:39)
[2017-12-02] MEDS: cephALEXin 250 MG CAPSULE PO SCH (17:45)
[2017-12-02] MEDS: APIXABAN 5 MG TABLET PO SCH (20:03)
[2017-12-02] MEDS: BRIMONIDINE 0.2% OPHTH DROPS 5 ML EACHEYE SCH (20:04)
[2017-12-02] MEDS ORDERED: ATORVASTATIN 40 MG TABLET PO SCH (21:00)
[2017-12-02] MEDS ORDERED: LATANOPROST 0.005% OPHTH DROPS EACHEYE SCH (21:00)
[2017-12-02] MEDS ORDERED: APIXABAN 5 MG TABLET PO SCH (21:00)
[2017-12-03] MEDS: SODIUM CHLORIDE 0.9% 1,000 ML IV SCH (00:31)
[2017-12-03] MEDS: cephALEXin 250 MG CAPSULE PO SCH ×2 (00:31→06:19)
[2017-12-03] MEDS: SODIUM CHLORIDE FLUSH 0.9% 10 ML SYRINGE IVP SCH ×2 (00:35→09:26)
[2017-12-03 06:11] LABS: BASOPHILS % (AUTO) 0.8 %; EOSINOPHILS # (AUTO) 0.2 10^3/uL (0.0-0.7); EOSINOPHILS % (AUTO) 2.7 %; HGB - HEMOGLOBIN 14.5 g/dL (14.0-18.0); LYMPHOCYTES # (AUTO) 1.4 10^3/uL (1.5-3.5); LYMPHOCYTES % (AUTO) 21.9 %; MEAN CORPUSCULAR HEMOGLOBIN 29.8 pg (27.0-31.0); MEAN CORPUSCULAR HGB CONC 33.5 g/dL (32.0-36.0); MEAN CORPUSCULAR VOLUME 88.9 fL (80.0-94.0); MONOCYTES # (AUTO) 0.5 10^3/uL (0.0-1.0); MONOCYTES % (AUTO) 7.5 %; NEUTROPHILS # (AUTO) 4.3 10^3/uL (1.5-6.6); NEUTROPHILS % (AUTO) 67.1 %; PLT - PLATELET COUNT 177 10^3/uL (130-450); RED BLOOD COUNT 4.87 10^6/uL (4.70-6.10); RED CELL DISTRIBUTION WIDTH 14.2 % (12.0-15.0); WHITE BLOOD COUNT 6.4 x10^3/uL (4.8-10.8)
[2017-12-03 06:21] LABS: INR 1.5 (0.8-1.2); PT - PROTHROMBIN TIME 16.5 secs (9.9-12.6)
[2017-12-03 06:24] LABS: ALBUMIN 3.5 g/dL (3.2-5.5); ALBUMIN/GLOBULIN RATIO 1.2 (1.0-2.2); CALCIUM 8.6 mg/dL (8.5-10.3); MAGNESIUM 1.9 mg/dL (1.7-2.8); TOTAL PROTEIN 6.4 g/dL (6.7-8.2)
[2017-12-03] MEDS ORDERED: ASPIRIN 325 MG TABLET PO SCH (08:00)
[2017-12-03] MEDS: APIXABAN 5 MG TABLET PO SCH (08:25)
[2017-12-03] MEDS: BRIMONIDINE 0.2% OPHTH DROPS 5 ML EACHEYE SCH (08:27)
[2017-12-03 08:28] VITALS: BP 177/76
[2017-12-03] MEDS ORDERED: POLYETHYLENE GLYCOL 3350 17 GM PACKET PO SCH (09:00)
[2017-12-03] MEDS ORDERED: FAMOTIDINE 20 MG TABLET PO SCH (09:00)
[2017-12-03] MEDS ORDERED: METOPROLOL SUCCINATE 25 MG TABLET PO SCH (09:00)
--- NOTE | 2017-12-03 10:24 | Discharge Plan ---
Discharge Plan Disposition: 01 Home, Self Care Condition: Good Prescriptions: Aspirin [Aspirin EC] 81 mg PO DAILY #30 tablet. Diet: Regular Activity Restrictions: No Restrictions Shower Restrictions: No Driving Restrictions: No Weight Bearing: Full Weight Additional Instructions or Follow Up instructions: You were admitted for TIA symptoms including memory loss and slight confusion. These symptoms resolved and all of the imaging showed no new findings. Your pacemaker is stable, and you were continued on your antibiotic. You should finish all of your antibiotics as previously instructed. The most likely cause of this episode was due to skipping Eliquis doses which was necessary to get your pacemaker implanted. Eliquis was resumed, and you should continue at home. Please see your PCP within one week and keep your post-pacemaker appointment. No Smoking: If you smoke, Please STOP! Call for help. Follow-up with: Vahe Mcintosh MD [Primary Care Provider] -
--- NOTE | 2017-12-03 10:31 | DISCHARGE SUMMARY ---
Discharge Summary Admit Date: 12/02/17 Discharge Date: 12/03/17 Discharging Provider: KINGS Fonseca Primary Care Provider: Vahe Mcintosh Code Status: Attempt Resuscitation Condition at Discharge: Good Discharge Disposition: 01 Home, Self Care - DIAGNOSES Admission Diagnoses: Transient cerebral ischemic attack, unspecified (G45.9) Presence of cardiac pacemaker (Z95.0) Other amnesia (R41.3) Aphasia (R47.01) long term care administrator (current) use of anticoagulants (Z79.01) Chronic atrial fibrillation (I48.2) Discharge Diagnoses with Status of Each Condition: TIA (transient ischemic attack) (G45.9) symptoms resolved, stable. Cardiac pacemaker (Z95.0) new, stable, wound is healing well. Keflex to continue at home. Memory loss (R41.3) resolved. Expressive aphasia (R47.01) resolved. Chronic anticoagulation (Z79.01) chronic, stable. Chronic atrial fibrillation (I48.2) chronic, stable. - HPI History of Present Illness: Stefano Cunha is an 87-year old male with a past medical history of hypertension, atrial fibrillation, status post pacemaker, COPD, TIA, and nocturia. The patient presented to the ED with his who drove him here for TIA symptoms. The patient states that he awoke this morning feeling his normal self, and suddenly could not speak with acute memory loss. He did not have any associated symptoms such as shortness of breath, nausea, vomiting, dizziness, or chest pain. His was present and did not notice any ataxia or facial droop. The patient denies a new cough or problems with swallowing. Imaging of the head/neck did not show any acute abnormalities or evidence of bleeding. Upon my exam the patient has no focal-neuro deficits and has had a resolution of his symptoms. The patient will be admitted to observation for neuro checks, and an echocardiogram. - HOSPITAL COURSE Hospital Course: (1) TIA (transient ischemic attack) The patient states that he awoke this morning feeling his normal self, and suddenly could not speak with acute memory loss. He did not have any associated symptoms such as shortness of breath, nausea, vomiting, dizziness, or chest pain. His was present and did not notice any ataxia or facial droop. The patient denies a new cough or problems with swallowing. Imaging of the head/neck did not show any acute abnormalities or evidence of bleeding. (2) Memory loss The patient had memory loss in addition to his temporary expressive aphasia. The patient and his state that he could not recall common events or situations that should have been easily recalled on a normal day. This symptom is no longer evident. (3) Expressive aphasia The patient was noted to have sluggish speech, with word finding difficulties. This symptom went along with some short term memory loss. This has resolved upon my exam and the patient is able to articulate accurately the course of events that led to this hospital stay. (4) Chronic anticoagulation The patient is prescribed Eliquis BID, which was resumed on the morning prior to his presentation to the ED. This medication was on hold for 72 hours so that the patient could undergo a pacemaker implant. The patient states that between he and his , they are extremely compliant with taking their medications on time every day. The patient was continued on Eliquis as at home and monitored for recurrent symptoms. (5) Atrial fibrillation, chronic The patient has had this for several years. His current EKG and telemetry show a paced rhythm in the 60-70's. He was previously anticoagulated with warfarin, but has recently been on Eliquis with good success. He had an interruption in his Eliquis for about 72 hours to get his pacemaker, but this has been resumed. Disposition: The patient was anxious to return home with his and family. He remained symptom free, and was at his baseline. - ALLERGIES Allergies/Adverse Reactions: Allergies Allergy/AdvReac Type Severity Reaction Status Date / Time No Known Drug Allergies Allergy Verified 12/02/17 10:24 - MEDICATIONS Home Medications: Ambulatory Orders Medication Instructions Recorded Confirmed Albuterol 2.5 mg INH Q4H PRN 11/28/17 12/02/17 Apixaban [Eliquis] 5 mg PO BID 11/28/17 12/02/17 Atorvastatin Calcium 40 mg PO QPM 11/28/17 12/02/17 Brimonidine 0.2% Ophth Drops 1 drops EACHEYE BID 11/28/17 12/02/17 [Alphagan P 0.2% Ophth Drops] Latanoprost 1 drops EACHEYE QPM 11/28/17 12/02/17 Losartan [Cozaar] 25 mg PO DAILY 11/28/17 12/02/17 Multivitamin [Multiple Vitamins] 1 tab PO DAILY 11/28/17 12/02/17 Tiotropium Liberty [Spiriva] 2 cap INH DAILY 11/28/17 12/02/17 Metoprolol Succinate 12.5 mg PO DAILY 12/02/17 12/02/17 Aspirin [Aspirin EC] 81 mg PO DAILY #30 tablet. 12/03/17 - PHYSICAL EXAM AT DISCHARGE General Appearance: positive: No acute distress, Alert Eyes Bilateral: positive: Normal inspection ENT: positive: ENT inspection nml, Pharynx nml, No signs of dehydration Neck: positive: Nml inspection, Thyroid nml, No JVD Respiratory: positive: Chest non-tender, No respiratory distress, Breath sounds nml Cardiovascular: positive: No gallop, Irregularly irregular, Bradycardia, Systolic murmur Peripheral Pulses: positive: 2+ Abdomen: positive: Non-tender, Nml bowel sounds Back: positive: Nml inspection Skin: positive: No rash, Warm, Dry Extremities: positive: Non-tender, Full ROM, Nml appearance, No pedal edema Neurologic/Psychiatric: positive: Oriented x3, CN's nml (2-12), Motor nml, Sensation nml, Mood/affect nml Reflexes: Bicep (R): 3+, Bicep (L): 3+ ( ) - LABS Result Diagrams: 12/03/17 05:56 12/03/17 05:56 - DIAGNOSTIC IMAGING Diagnostic Imaging Results: Final report reviewed Diagnostic Imaging Results Comments: EXAM: CT HEAD EXAM DATE: 12/02/2017 11:23 AM. IMPRESSION: Generalized age-related cortical atrophic changes without evidence of acute intracranial abnormality. No intracranial hemorrhage, mass-effect, or CT evidence of acute infarct. EXAM: CT ANGIOGRAM NECK EXAM DATE: 12/02/2017 01:34 PM. IMPRESSION: 1. No CTA evidence of high-grade stenosis, large vessel occlusion, acute dissection, aneurysm, or vascular malformation within extracranial arteries. Concurrently obtained CTA head has been dictated simply. 2. Moderate atherosclerosis right carotid bifurcation and right carotid bulb, maximal stenosis of approximately 20%, mild by NASCET criteria . 3. Approximately 10-20% narrowing origin of the right external carotid artery. 4. Moderate to severe atherosclerosis left carotid bifurcation and left carotid bulb, maximal stenosis of approximately 50%, moderate by NASCET criteria. 5. Approximately 30-40% narrowing proximal left external carotid artery. 6. Approximately 30-40% narrowing origin of the left vertebral artery. EXAM: CT ANGIOGRAM HEAD. CT SCAN OF THE HEAD WITH CONTRAST. EXAM DATE: 12/02/2017 01:34 PM IMPRESSION: 1. Concurrently obtained noncontrast CT head has been dictated separate. 2. No abnormal enhancement on the postcontrast CT head. 3. No CTA evidence of high-grade stenosis, large vessel occlusion, acute dis section, aneurysm, or vascular malformation within intracranial arteries. 4. Moderate atherosclerosis right carotid siphon, maximal stenosis 30-40%. 5. Moderate atherosclerosis left carotid siphon, maximal stenosis 20-30%. ECHOCARDIOGRAM: Final read by Nasim Bonilla MD 1. Mild concentric LV hypertrophy. 2. Overall LV systolic function is lower limits of normal with an EF of 50-55%. 3. Severe increase in the LA volume index. 4. Moderate RA enlargement. 5. There is mild to moderate mitral regurg. 6. Contrast injection of agitated saline was negative for an atrial shunt. - FOLLOW UP Follow Up: Disposition: Home, Self Care Condition: Good Prescriptions: Aspirin [Aspirin EC] 81 mg PO DAILY #30 tablet. Diet: Regular Activity Restrictions: No Restrictions Shower Restrictions: No Driving Restrictions: No Weight Bearing: Full Weight Additional Instructions or Follow Up instructions: You were admitted for TIA symptoms including memory loss and slight confusion. These symptoms resolved and all of the imaging showed no new findings. Your pacemaker is stable, and you were continued on your antibiotic. You should finish all of your antibiotics as previously instructed. The most likely cause of this episode was due to skipping Eliquis doses which was necessary to get your pacemaker implanted. Eliquis was resumed, and you should continue at home. Please see your PCP within one week and keep your post-pacemaker appointment. - TIME SPENT Time Spent in Discharge (Minutes): 45
== END 2017-12-03 11:22 | disposition home or self-care (01) ==
LOC: ED 10:17 → OBS 13:03
PROVIDERS: ADMIT Internal Medicine; ATTEND Nurse Practitioner
DX: G45.9 Transient cerebral ischemic attack, unspecified (principal); I48.2 Chronic atrial fibrillation; I10 Essential (primary) hypertension; I34.0 Nonrheumatic mitral (valve) insufficiency; J44.9 Chronic obstructive pulmonary disease, unspecified; R35.1 Nocturia; Z79.82 Long term (current) use of aspirin; Z95.0 Presence of cardiac pacemaker; Z79.01 Long term (current) use of anticoagulants; H91.90 Unspecified hearing loss, unspecified ear; Z87.891 Personal history of nicotine dependence
CPT/HCPCS: 36415; 70450; 70496; 70498; 80048; 80053; 81003; 83735; 85025; 85610; 93005; 93306; 99284; A9270; G0378; Q9967; 81001; 84484; 87086

== ENCOUNTER 2019-07-17 17:13 | Outpatient (CLI) | payer MEDICARE, OTHER | END 2019-07-17 17:14 | disposition home or self-care (01) | LOC: COV 17:13 | PROVIDERS: ATTEND Family Medicine | DX: R05 Cough (principal); R06.02 Shortness of breath; M79.10 Myalgia, unspecified site; R53.83 Other fatigue; J02.9 Acute pharyngitis, unspecified; R19.7 Diarrhea, unspecified | CPT/HCPCS: 81599 ==